=== PATIENT | male | born 2000 | race Two or more races ===

== ENCOUNTER 2023-10-19 23:02 | Emergency (ER) | payer SELFPAY ==
[~2023-10-19] VITALS: Ht 167.6 cm; Wt 63.6 kg
[2023-10-19 23:33] LABS: Basophils # (auto) 0 10 ^3/uL (0-0.2); Basophils % (auto) 0.3 % (0.0-2.0); Eosinophils # (auto) 0.1 10 ^3/uL (0-0.8); Eosinophils % (auto) 0.6 % (0.0-7.0); Hematocrit 46.8 % (41.0-53.0); Hemoglobin 15.7 g/dL (13.5-17.5); Lymphocytes # (auto) 2.7 10 ^3/uL (0.4-5.4); Lymphocytes % (auto) 16.3 % (10.0-50.0); Mean Corpuscular Hemoglobin 30.8 pg (28.0-32.0); Mean Corpuscular Hgb Conc. 33.6 g/dL (32.0-36.0); Mean Corpuscular Volume 91.7 fL (80.0-100.0); Monocytes # (auto) 0.9 10 ^3/uL (0-1.3); Monocytes % (auto) 5.3 % (0.0-12.0); Neutrophils # (auto) 12.7 10 ^3/uL (1.6-8.6); Neutrophils % (auto) 77.5 % (37.0-80.0); Nucleated Red Blood Cells % 0.1 %; Red Blood Cells 5.11 10^6/uL (4.5-5.90); Red Cell Distribution Width 12.6 % (11.8-14.3); White Blood Cell 16.3 10^3/uL (4.4-10.8)
[2023-10-19 23:50] LABS: Alanine Aminotransferase 38 U/L (7-40); Albumin 4.8 g/dL (3.2-4.8); Alkaline Phosphatase 95 U/L (46-116); Anion Gap 14 (5-15); Aspartate Aminotransferase 30 U/L (13-40); BUN/Creatinine Ratio 5.7 (10.0-20.0); Blood Alcohol < 3.0 mg/dL (<10); Blood Urea Nitrogen 6 mg/dL (9-23); Carbon Dioxide 21 mmol/L (20-30); Chloride 103 mmol/L (98-107); Glucose 200 mg/dL (74-106); Potassium 3.8 mmol/L (3.5-5.1); Sodium 138 mmol/L (136-145)
[2023-10-19 23:51] LABS: Acetaminophen < 2.0 UG/ML (10.0-20.0); Bilirubin, Total 0.5 mg/dL (0.2-1.0); Total Protein 7.9 g/dL (5.7-8.2)
[2023-10-20] LABS: Salicylate < 3.0 mg/dL (2.8-20.0)
[2023-10-20] MEDS ORDERED: ONDANSETRON HCL 4 MG/2 ML VIAL IM ONE
[2023-10-20] MEDS ORDERED: KETOROLAC TROMETH 60MG/2ML VIAL IM ONE
[2023-10-20] MEDS ORDERED: SODIUM CHLORIDE 0.9% 1,000 ML IV ONE
[2023-10-20 02:58] VITALS: PULSE 74; RESP 14; O2SAT 100
[2023-10-20 03:26] LABS: Urine Bacteria NONE SEEN /hpf (None Seen); Urine Blood Negative /uL (Negative); Urine Clarity Clear (Clear); Urine Color Yellow (Yellow); Urine Mucus FEW (None Seen); Urine Protein, UAD TRACE (Negative); Urine Specific Gravity 1.023 (1.001-1.035); Urine Urobilinogen Normal (Negative); Urine WBC 37 /hpf (0 - 3); Urine pH 6.5 (5.0-8.0)
[2023-10-20 03:28] LABS: Amphetamine Screen, Urine Neg (NEGATIVE); Barbiturate Scree,Urine Neg (NEGATIVE); Benzodiazephine Screen, Urine Neg (NEGATIVE); Cannabinoid Screen, Urine Pos (NEGATIVE); Cocaine Screen, Urine Pos (NEGATIVE); Opiate Scree,Urine Neg (NEGATIVE); Phencyclidine Screen, Urine Neg (NEGATIVE)
[2023-10-20 05:37] VITALS: BP 102/71; PULSE 69; RESP 16; TEMP 98.3; O2SAT 98
== END 2023-10-20 05:39 | disposition home or self-care (01) ==
LOC: ER 23:02
DX: T40.711A Poisoning by cannabis, accidental (unintentional), initial encounter (principal); F15.90 Other stimulant use, unspecified, uncomplicated; Y92.89 Other specified places as the place of occurrence of the external cause
CPT/HCPCS: 36415; 80053; 80307; 80320; 80329; 81001; 85025; 96360; 96372; 99285; J7030; J1885; J2405